=== PATIENT | female | born 1965 | race African-American/Black ===

== ENCOUNTER 2017-08-30 16:10 | Inpatient (IN) ==
[2017-08-30] MEDS ORDERED: ONDANSETRON 4 MG/2 ML VIAL IV STA (18:07)
[2017-08-30] MEDS ORDERED: ONDANSETRON 4 MG/2 ML VIAL ONE (18:08)
[2017-08-30 18:13] LABS: Basophils # 0.1 10*3/uL (0.0-0.2); Basophils % 0.7 % (0.0-0.8); Eosinophils # 0.3 10*3/uL (0.0-0.87); Eosinophils % 3.4 % (0.00-10.9); Hematocrit 49.9 VOL% (35.7-47.0); Hemoglobin 17.3 GM/DL (12.0-16.0); Immature Granulocytes % 0.7 %; Immature Granulocytes Absolute 0.05 #; Lymphocytes % 26.4 % (21.3-54.2); Mean Corpuscular HGB Conc 34.7 GM/DL (32-36); Mean Corpuscular Hemoglobin 31 PG (27-34); Mean Corpuscular Volume 90.4 FL (87-102); Mean Platelet Volume 11.2 FL (9.6-12.0); Monocytes # 0.9 10*3/uL (0.11-0.8); Monocytes % 11.3 % (1.7-12.7); Neutrophils # 4.3 10*3/uL (1.4-7.4); Neutrophils % 57.5 % (38.7-73.9); Platelet Count 317 T/CUMM (130-400); Red Blood Count 5.52 MC/CUMM (3.8-5.5); Red Cell Distribution Width 13.4 % (9.3-17.3); White Blood Count 7.5 T/CUMM (4-12)
[2017-08-30 18:18] LABS: PT Patient Result 10.4 SECS; Partial Thromboplastin Time 23.1 SECS (0-40)
[2017-08-30 19:18] LABS: Alanine Aminotransferase 22 U/L (13-56); Albumin 4.4 G/DL (3.4-5.0); Alkaline Phosphatase 98 U/L (45-117); Aspartate Amino Transferase 13 U/L (0-37); Blood Urea Nitrogen 55 MG/DL (7-18); Calcium 9.8 MG/DL (8.5-10.1); Glucose 93 MG/DL (74-106); Osmolality,Calculated 287.8 MOS/KG (273-304); Potassium 4.2 MMOL/L (3.5-5.1); Sodium 137 MMOL/L (136-145); Total Protein 9.7 G/DL (6.4-8.3); Troponin I Only < 0.015 NG/ML (0.00-0.045)
[2017-08-30 19:23] LABS: Free T4 (Free Thyroxine) 1.18 NG/DL (0.76-1.46); Thyroid Stimulating Hormone 1.25 uIU/ml (0.358-3.74)
[2017-08-30] MEDS ORDERED: SODIUM CHLORIDE 0.9% 1,000 ML IV STA (19:43)
[2017-08-30 20:28] LABS: Apearance,Urine CLOUDY (Clear); Bacteria,Urine Many /HPF (Few); Bilirubin,Urine Negative (Negative); Blood, Urine Negative (Negative); Glucose,Urine (UA) Negative (Negative); Hyaline Casts,Urine 93 /LPF (0-3); Ketones,Urine Negative (Negative); Mucus,Urine Moderate /LPF (Occasional); Nitrite,Urine Negative (Negative); Protein,Urine 30 MG/DL; RBC,Urine 6 /HPF (0-4); Squamous Epithelial Cell,Urine Few /HPF (0-10); Urine Color Yellow (Yellow); Urine Specific Gravity 1.018 (1.001-1.035); WBC,Urine 35 /HPF (0-6)
[2017-08-30] MEDS ORDERED: PROMETHAZINE 25 MG/1 ML VIAL IM PRN (23:04)
[2017-08-30] MEDS ORDERED: ZALEPLON 5 MG CAPSULE PO PRN (23:04)
[2017-08-30] MEDS ORDERED: DOCUSATE SODIUM 100 MG CAPSULE PO PRN (23:04)
[2017-08-30] MEDS: SODIUM CHLORIDE 0.9% 1,000 ML IV SCH (23:36)
[2017-08-31] MEDS: cefTRIAXone 1,000 MG in SYRINGE 1 EACH IV SCH ×2 (02:24→13:20)
[2017-08-31] MEDS: ONDANSETRON 4 MG/2 ML VIAL IV PRN ×3 (02:35→23:17)
[2017-08-31 05:34] LABS: Osmolality,Calculated 290.4 MOS/KG (273-304)
[2017-08-31] MEDS: PANTOPRAZOLE 40 MG TABLET PO SCH (09:23)
[2017-08-31] MEDS: SODIUM CHLORIDE 0.9% 1,000 ML IV SCH ×2 (09:23→17:46)
[2017-08-31 10:18] LABS: Risk Ratio 2.98
[2017-09-01] MEDS: SODIUM CHLORIDE 0.9% 1,000 ML IV SCH ×3 (01:48→16:09)
[2017-09-01] MEDS: cefTRIAXone 1,000 MG in SYRINGE 1 EACH IV SCH ×2 (01:48→13:40)
[2017-09-01 06:40] LABS: Basophils % 0.7 % (0.0-0.8); Eosinophils # 0.3 10*3/uL (0.0-0.87); Eosinophils % 6.6 % (0.00-10.9); Hemoglobin 12.3 GM/DL (12.0-16.0); Immature Granulocytes % 0.2 %; Immature Granulocytes Absolute 0.01 #; Lymphocytes # 1.4 10*3/uL (1.4-4.0); Lymphocytes % 30.2 % (21.3-54.2); Mean Corpuscular HGB Conc 34.2 GM/DL (32-36); Mean Corpuscular Hemoglobin 32 PG (27-34); Mean Corpuscular Volume 92.3 FL (87-102); Mean Platelet Volume 10.8 FL (9.6-12.0); Monocytes # 0.6 10*3/uL (0.11-0.8); Monocytes % 12.3 % (1.7-12.7); Neutrophils # 2.3 10*3/uL (1.4-7.4); Platelet Count 199 T/CUMM (130-400); Red Cell Distribution Width 13.2 % (9.3-17.3); White Blood Count 4.6 T/CUMM (4-12)
[2017-09-01 07:05] LABS: Calcium 8.8 MG/DL (8.5-10.1); Osmolality,Calculated 283.1 MOS/KG (273-304); Potassium 4.2 MMOL/L (3.5-5.1)
[2017-09-01] MEDS: ONDANSETRON 4 MG/2 ML VIAL IV PRN (09:11)
[2017-09-01] MEDS: ACETAMINOPHEN 325 MG TABLET PO PRN ×3 (09:11→20:02)
[2017-09-01] MEDS: PANTOPRAZOLE 40 MG TABLET PO SCH (09:11)
[2017-09-02] LABS: Apearance,Urine CLEAR (Clear); Bacteria,Urine Occasional /HPF (Few); Bilirubin,Urine Negative (Negative); Blood, Urine Small mg/dL (Negative); Glucose,Urine (UA) Negative (Negative); Ketones,Urine Negative (Negative); Mucus,Urine Occasional /LPF (Occasional); Nitrite,Urine Negative (Negative); Protein,Urine Negative; RBC,Urine 2 /HPF (0-4); Squamous Epithelial Cell,Urine Occasional /HPF (0-10); Urine Color Yellow (Yellow); Urine Specific Gravity 1.013 (1.001-1.035); Urine Urobilinogen < 2.0 EU/DL (0.2-1.0); WBC,Urine 4 /HPF (0-6)
[2017-09-02] MEDS: SODIUM CHLORIDE 0.9% 1,000 ML IV SCH ×2 (00:42→14:41)
[2017-09-02] MEDS: cefTRIAXone 1,000 MG in SYRINGE 1 EACH IV SCH (00:44)
[2017-09-02 06:07] LABS: Calcium 8.9 MG/DL (8.5-10.1)
[2017-09-02 06:08] LABS: Osmolality,Calculated 288.7 MOS/KG (273-304); Potassium 3.9 MMOL/L (3.5-5.1)
[2017-09-02] MEDS: ACETAMINOPHEN 325 MG TABLET PO PRN ×2 (06:40→09:43)
[2017-09-02] MEDS: PANTOPRAZOLE 40 MG TABLET PO SCH (09:34)
[2017-09-02] MEDS ORDERED: amLODIPine 5 MG TABLET PO SCH (11:00)
[2017-09-02] MEDS ORDERED: CITALOPRAM 20 MG TABLET PO SCH (11:00)
[2017-09-02 12:47] VITALS: BP 145/94
[2017-09-02] MEDS ORDERED: MELATONIN 3 MG TABLET PO SCH (21:00)
== END 2017-09-02 15:10 | disposition home or self-care (01) | DRG 683 ==
LOC: N.ED 16:10 → N.EDINP 20:07 → N.4E 21:07
PROVIDERS: ADMIT Internal Medicine Infectious Disease; ATTEND Internal Medicine Infectious Disease